=== PATIENT | female | born 1980 | race African-American/Black ===

== ENCOUNTER 2017-07-15 20:18 | Emergency (ER) | payer OTHER ==
[2017-07-15 20:26] VITALS: BP 132/65; PULSE 74; TEMP 98.3; BMI 25.6
[2017-07-16 00:07] LABS: URINE APPEARANCE SLCLOUDY; URINE BILIRUBIN NEGATIVE (NEGATIVE); URINE BLOOD 1+ (NEGATIVE); URINE COLOR LTYELLOW; URINE GLUCOSE (UA) NEGATIVE (NEGATIVE); URINE KETONE NEGATIVE (NEGATIVE); URINE LEUK ESTERASE NEGATIVE (NEGATIVE); URINE NITRITE NEGATIVE (NEGATIVE); URINE PROTEIN NEGATIVE (NEGATIVE); URINE UROBILINOGEN NEGATIVE mg/dL (0.2-1.0)
[2017-07-16 00:13] LABS: URINE MUCUS RARE; URINE RBC 11 /hpf (0-3); URINE WBC 1 /hpf (3-5)
--- NOTE | 2017-07-16 00:18 | PDOC ---
History of Present Illness - General Chief Complaint: Vaginal Sxs Stated Complaint: EVALUATION () Time Seen by Provider: 07/15/17 23:16 History Source: Patient Exam Limitations: No Limitations - History of Present Illness Travel History: No Initial Comments: 07/16/17 00:15 36yo Female patient with no significant past medical history presents to ED c/o vaginal odor and . Patient state 1 week ago experiencing urinary symptoms, she called her [facility] office and was prescribed Macrobid. Patient states she did not fill Rx, but took a test 2 days ago and it was positive. She then went to urgent care and again had urine checked for and tested positive. Patient tried to get an appointment with [facility] office but was told Jul 21. She is now c/o foul vaginal odor. Denies dysuria, pain, hematuria , back pain, flank pain, vaginal bleeding, fever, or any other complaints at this time. Past History - Past Medical History Allergies/Adverse Reactions: Allergies Allergy/AdvReac Type Severity Reaction Status Date / Time No Known Drug Allergies Allergy Verified 07/15/17 20:23 Home Medications: Ambulatory Orders Oxycodone HCl/Acetaminophen [Percocet 5-325 mg Tablet] 1 - 2 combo PO Q4H PRN # 30 tablet 05/30/12 Doxycycline Monohydrate [Doxycycline] 150 mg PO 06/06/12 Methylergonovine Maleate [Methergine] 0.2 mg PO 06/06/12 Metronidazole [Flagyl -] 500 mg PO DAILY #14 tablet 07/16/17 Anemia: No Asthma: No Cancer: No Cardiac Disorders: No CVA: No COPD: No CHF: No DVT: No Dementia: No Diabetes: No Dialysis: No GI Disorders: No - Reproductive History (#): 1 Para: 2 Spontaneous : 1 - Immunization History Td Vaccination: Yes TDAP Vaccination: Yes Immunization Up to Date: No - Suicide/Smoking/Psychosocial Hx Smoking Status: No Smoking History: Never smoked Have you smoked in the past 12 months: Yes Number of Cigarettes Smoked Daily: 0 Information on smoking cessation initiated: No Abd/GI Specific PMHX - Complaint Specific PMHX Colitis: No Diverticulitis: No Gall Bladder Disease: No GERD: No Hepatitis: No Irritable Bowel Synd (IBS): No Pancreatitis: No GI Ulcer Disease: No Review of Systems - Review of Systems Able to Perform ROS?: Yes Is the patient limited Hungarian proficient: No ABD/GI: No: Diarrhea, Nausea, Vomiting : Yes: Discharge, Other (Vaginal Odor). No: Burning, Dysuria, Frequency, Flank Pain, Hematuria, Pain, Urgency All Other Systems: Reviewed and Negative *Physical Exam - Vital Signs Last Vital Signs Temp Pulse Resp BP Pulse Ox 98.3 F 74 18 132/65 100 07/15/17 20:23 07/15/17 20:23 07/15/17 20:23 07/15/17 20:23 07/15/17 20:23 - Physical Exam General Appearance: Yes: Nourished, Appropriately Dressed. No: Apparent Distress, Mild Distress, Moderate Distress, Severe Distress Neck: positive: Trachea midline, Normal Thyroid, Supple. negative: Rigid, Stridor, Lymphadenopathy (R), Lymphadenopathy (L) Respiratory/Chest: positive: Lungs Clear, Normal Breath Sounds. negative: Chest Tender, Respiratory Distress, Accessory Muscle Use, Labored Respiration, Rapid RR, Rhonchi, Stridor, Wheezing Cardiovascular: positive: Regular Rhythm, Regular Rate Female Pelvic Exam: positive: normal external exam, cervical os closed, normal adnexa, normal size ovaries, discharge (Thin White discharge.). negative: CMT, adnexal tenderness, uterus, Urethra, vaginal bleeding Gastrointestinal/Abdominal: positive: Normal Bowel Sounds, Soft. negative: Distended, Guarding, Rebound, Tenderness Musculoskeletal: positive: Normal Inspection. negative: CVA Tenderness Extremity: positive: Normal Capillary Refill, Normal Inspection, Normal Range of Motion. negative: Pedal Edema, Swelling, Calf Tenderness, Erythema, Inflammation Integumentary: positive: Normal Color, Dry, Warm Neurologic: positive: top and trim worker II-XII NML intact, Fully Oriented, Alert, Normal Mood/ Affect, Normal Response, Motor Strength 5/5 ED Treatment Course - ADDITIONAL ORDERS Additional order review: Laboratory Results 07/15/17 23:55 Urine Color Ltyellow Urine Appearance Slcloudy Urine pH 7.0 Urine Protein Negative Urine Glucose (UA) Negative Urine Ketones Negative Urine Blood 1+ H Urine Nitrite Negative Urine Bilirubin Negative Urine Urobilinogen Negative Urine HCG, Qual Positive *DC/Admit/Observation/Transfer Diagnosis at time of Disposition: BV (bacterial vaginosis) - Discharge Dispostion Disposition: HOME Condition at time of disposition: Stable Admit: No - Prescriptions Prescriptions: Metronidazole [Flagyl -] 500 mg PO DAILY #14 tablet - Patient Instructions Printed Discharge Instructions: DI for Bacterial Vaginosis Additional Instructions: Follow up with your [facility] as scheduled. Take medications as prescribed. You are being treated for Bacterial Vaginosis until otherwise proven co-infection from cultures taking during vaginal exam return positive. Return if any concerns for further evaluation. Print Language: THAI
[2017-07-16] MEDS ORDERED: metroNIDAZOLE 250 MG TABLET PO ONE (01:14)
== END 2017-07-16 01:40 | disposition home or self-care (01) ==
LOC: JERFT 20:18 → JER 20:18
DX: N76.0 Acute vaginitis (principal)
CPT/HCPCS: 36415; 81003; 81015; 84703; 87491; 87591; 99282-25

== ENCOUNTER 2021-04-20 11:24 | Emergency (ER) | payer OTHER ==
[2021-04-20 11:50] VITALS: TEMP 98.5; BMI 25.4
[2021-04-20 13:39] VITALS: BP 126/80; PULSE 79
== END 2021-04-20 13:41 | disposition home or self-care (01) ==
LOC: JER 11:24
DX: M54.9 Dorsalgia, unspecified (principal); Z3A.01 Less than 8 weeks gestation of pregnancy
CPT/HCPCS: 36415; 76801-TC; 84702; 99284-25